=== PATIENT | male | born 1995 | race Caucasian/White ===

== ENCOUNTER 2018-09-15 19:13 | Emergency (ER) | payer OTHER ==
[~2018-09-15] VITALS: Ht 170.2 cm; Wt 87.3 kg
[2018-09-15 19:32] VITALS: BP 148/78
== END 2018-09-15 21:25 | disposition home or self-care (01) ==
LOC: EMS 19:16
DX: F10.10 Alcohol abuse, uncomplicated (principal); F15.10 Other stimulant abuse, uncomplicated

== ENCOUNTER 2024-02-02 21:44 | Emergency (ER) | payer OTHER ==
[~2024-02-02] VITALS: Ht 167.6 cm; Wt 96.8 kg
[2024-02-02 21:52] VITALS: TEMP 98
[2024-02-02 22:42] LABS: COVID AG,FIA SOURCE NASAL SWAB
[2024-02-02 22:58] LABS: RAPID GROUP A STREP NEGATIVE (NEGATIVE)
[2024-02-02 23:06] LABS: INFLUENZA TYPE A NEGATIVE FOR TYPE A (NEGATIVE); INFLUENZA TYPE B NEGATIVE FOR TYPE B (NEGATIVE); SARS-COV2 (COVID) ANTIGEN,FIA Negative (Negative)
[2024-02-02 23:30] VITALS: BP 129/84; PULSE 84; RESP 18
[2024-02-02] MEDS ORDERED: GUAIFDM PO (23:38)
[2024-02-02] MEDS ORDERED: IBUP-1554 PO (23:38)
[2024-02-02] MEDS ORDERED: ACET-2080 PO (23:38)
[2024-02-02] MEDS: IBUPROFEN 600 MG TABLET PO ONE (23:39)
[2024-02-02] MEDS: GuaiFENesin/D-METHORPHAN [SUGAR-FREE] 200-20MG/10 ML SYRUP UDCUP PO ONE (23:39)
[2024-02-02] MEDS: ACETAMINOPHEN 500 MG TABLET PO ONE (23:40)
== END 2024-02-03 00:09 | disposition home or self-care (01) ==
LOC: EMS 21:44
DX: J06.9 Acute upper respiratory infection, unspecified (principal); F15.90 Other stimulant use, unspecified, uncomplicated; Z20.822 Contact with and (suspected) exposure to COVID-19
CPT/HCPCS: 87430; 87804; 99284; Z7502; Z7610